=== PATIENT | male | born 1965 | race Caucasian/White ===

== ENCOUNTER 2018-12-07 13:30 | Emergency (ER) | payer BC ==
--- NOTE | 2018-12-07 13:35 | ED Physician Documentation ---
General Adult - HISTORIAN Historian: patient - HPI Stated Complaint: diarrhea Chief Complaint: Nausea,Vomiting,Diarrhea Onset: days ago (2) Timing: still present Severity: mild Further Comments: yes (He reports started two days ago he had diarrhea. He had one night of nausea and vomiting. He denies any fever. No sick contacts. He is not eating well. He feels weak.) - ROS CONST: weakness - PAST HX Past History: other (GERD, Allergies ) Surgeries/Procedures: other (shoulder ) Immunizations: UTD Allergies/Adverse Reactions: Allergies Allergy/AdvReac Type Severity Reaction Status Date / Time codeine Allergy Verified 10/24/13 10:13 Home Medications: Ambulatory Orders Medication Instructions Recorded Omeprazole 20 mg D 10/24/13 - SOCIAL HX Smoking History: non-smoker Alcohol Use: none Drug Use: none - FAMILY HX Family History: No - VITAL SIGNS Vital Signs: Vital Signs Temp Pulse Resp BP Pulse Ox 134/53 10/24/13 12:16 - REVIEWED ASSESSMENTS Nursing Assessment Reviewed: Yes Vitals Reviewed: Yes Progress - Progress Progress: 1535: Discussed plan and he is agreeable DG General Adult Physical Exam - PHYSICAL EXAM GENERAL APPEARANCE: no distress EENT: eye inspection normal, ENT inspection normal, dry mucous membranes NECK: normal inspection RESPIRATORY: no resp distress, chest non-tender, breath sounds normal CVS: reg rate & rhythm, heart sounds normal, no murmur ABDOMEN: soft, no distension, non-tender, abnormal bowel sounds (hyperactive ) BACK: normal inspection SKIN: warm/dry EXTREMITIES: non-tender NEURO: oriented X3 Discharge Clincal Impression: Diarrhea Referrals: Primary Doctor,No [Primary Care Provider] - 2 Days Comments: 1. Zofran 4 mg take 1 by mouth every 8 hours as needed for nausea 2. Lomotil 5 mg take 1by mouth 4 x per day until control then every 6 hours prn 3. Increase fluids 4. [place] foods 5. Increase as tolerated to regular diet 6. return to PCP in 2-4 days 7. Return to ER for any concerns Condition: Stable Disposition: 01 HOME, SELF-CARE Decision to Admit: NO Date of Decison to Admit: 12/07/18 Decision Time: 15:38
[2018-12-07] MEDS ORDERED: DIPHENOXYLATE /ATROPINE 2.5MG-0.025MG TABLET PO ONE (14:24)
[2018-12-07] MEDS ORDERED: DICYCLOMINE HCL 20 MG TABLET PO ONE (14:24)
[2018-12-07] MEDS ORDERED: 0.9 % SODIUM CHLORIDE 1,000 ML IV ONE (14:24)
[2018-12-07 15:08] LABS: MEAN CORPUSCULAR HEMOGLOBIN 29.9 pg (28.0-34.0)
[2018-12-07 15:09] LABS: BASOPHILS % 0.8 (0.0-1.5); EOSINOPHILS % 3.3 % (0.0-6.8); MONOCYTES % 9.7 % (0.0-11.0); NEUTROPHILS # 4.4 # k/uL (1.4-7.7)
[2018-12-07 15:15] LABS: eGFR (Non-African) > 60
[2018-12-07 17:03] VITALS: BP 160/75
== END 2018-12-07 16:35 | disposition home or self-care (01) ==
LOC: ED 13:31
DX: R19.7 Diarrhea, unspecified (principal)
CPT/HCPCS: 36415; 80053; 85025; 99283; J7030; S1016